=== PATIENT | male | born 1990 | race Caucasian/White ===

== ENCOUNTER 2023-05-20 12:27 | Observation (INO) | payer OTHER, SELFPAY ==
[2023-05-20] VITALS (46 sets, daily range): BP systolic 119–170; BP diastolic 82–120; PULSE 110–158; RESP 12–27; TEMP 36.3–36.6; O2SAT 91–100; BMI 30.5
--- NOTE | ~2023-05-20 | XR_ITS ---
EXAMINATION: XR chest 1V portable 05/20/2023 14:48 INDICATION: Tachycardia PROCEDURE: AP portable chest COMPARISON: No prior studies for comparison. FINDINGS: The lungs are clear. The cardiomediastinal silhouette is within normal limits. There are no pleural effusions. There is no pneumothorax suspected. IMPRESSION: 1: NO ACUTE CARDIOPULMONARY DISEASE. Reviewed, dictated and finalized at location B.
--- NOTE | ~2023-05-20 | MR_ITS ---
EXAMINATION: MR brain/brain stem wo con DATE: 05/21/2023 10:35 INDICATION: Tremors TECHNIQUE: Magnetic resonance imaging (MRI) of the brain and brainstem was performed without intraven ous contrast. Sequences included sagittal and axial T1-weighted SE, axial diffusion-weighted FS SE, a xial T2*-weighted GRE, axial 3D SWAN, axial T2-weighted FLAIR, and axial T2-weighted FSE. Apparent di ffusion coefficient (ADC) maps were created. COMPARISON: None. FINDINGS: There are no areas of restricted diffusion to suggest acute infarction. No intracranial hemorrhage or abnormal intracranial mass lesion. There are no intraparenchymal signal abnormalities seen on the ot her pulse sequences. The ventricles are symmetric and normal in size. There are no abnormal extra-axi al fluid collections. Flow voids are seen in the cerebral arteries on the T2-weighted sequences consi stent with their expected patency. Mild mucosal thickening the paranasal sinuses with mucous retentio n cyst at the right maxillary sinus. Visualized orbits and soft tissues are unremarkable. IMPRESSION: 1. Normal brain. Reviewed, dictated and finalized at location A. IMPRESSION: 1. Normal brain.
--- NOTE | ~2023-05-20 | XR_ITS ---
EXAMINATION: XR wrist RT min 3V DATE: 05/20/2023 13:03 INDICATION: Right wrist pain TECHNIQUE: Posteroanterior, ulnar deviation, oblique, and lateral views of the right wrist were obtai danelle. COMPARISON: none FINDINGS: Positioning is suboptimal with the patient's wrist dorsiflexed in the hand clenched into a fist. No e vident malalignment. No fracture. Joint spaces are normal. No erosions or periosteal reaction. There is a peripheral IV at the dorsum of the hand. Soft tissues are otherwise unremarkable. IMPRESSION: 1. Negative right wrist radiographs. Evaluation mildly limited by patient positioning. Reviewed, dictated and finalized at location A. IMPRESSION: 1. Negative right wrist radiographs. Evaluation mildly limited by patient posit ioning.
--- NOTE | 2023-05-20 12:38 | ECG_ITS ---
Measurements Intervals [place] Rate: 160 P: 47 MA: 113 QRS: 39 QRSD: 85 T: 55 QT: 281 QTc: 460 Interpretive Statements SINUS TACHYCARDIA WITH SHORT MA INTERVAL NONSPECIFIC T-WAVE ABNORMALITY BASELINE ARTIFACT ABNORMAL RHYTHM ECG NO PREVIOUS ECG AVAILABLE FOR COMPARISON Electronically Signed On 05-20-2023 20:24:[address] M.D.
--- NOTE | 2023-05-20 12:44 | ED.GENADULT ---
HPI - General Adult General Chief complaint: Unspecified Stated complaint: muscle tightness Time Seen by Provider: 05/20/23 12:40 History of Present Illness HPI narrative: EMS called earlier for patient because he was tensing all over, felt like he was having muscle spasms, he had taken his usual Adderall, no other medications, felt really warm. Per EMS when they first arrived he looked like he was hyperventilating and clenching, asked for partner drive him to the ER instead. Denies any recent drug use. Related Data Allergies Allergy/AdvReac Type Severity Reaction Status Date / Time No Known Allergies Allergy Verified 05/20/23 12:47 Course Vital Signs Vital signs: Vital Signs Temperature 97.9 F 05/20/23 12:34 Respiratory Rate 24 H 05/20/23 12:34 Blood Pressure 170/120 H 05/20/23 12:34 Pulse Oximetry 98 05/20/23 12:34 Temperature 97.9 F 05/20/23 12:34 Pulse Rate 122 H 05/20/23 17:01 Respiratory Rate 20 05/20/23 17:01 Blood Pressure 156/109 H 05/20/23 17:01 Pulse Oximetry 97 05/20/23 17:01 Medical Decision Making [facility] Narrative Medical decision making narrative: Patient presenting with tachycardia, he is diaphoretic and extremely tense with muscle rigidity, he is adamantly denying any drug use and not on any antipsychotics and only takes Adderall which his girlfriend dispenses to him. My differential includes ingestion/intoxication, anxiety, dehydration. He is given IV fluids and Ativan. D-dimer negative, lactic elevated, creatinine elevated. ETOH 92. His heart rate has improved, I did reevaluate him and he states that everything seems to hurt, he is quite tremulous and I do suspect more likely alcohol withdrawal. He is given additional doses of benzos and he is agreeable to admission. Discussed with hospitalist for admission. Vital Signs Vital Signs: Vital Signs Temperature 97.9 F 05/20/23 12:34 Respiratory Rate 24 H 05/20/23 12:34 Blood Pressure 170/120 H 05/20/23 12:34 Pulse Oximetry 98 05/20/23 12:34 Temperature 97.9 F 05/20/23 12:34 Pulse Rate 122 H 05/20/23 17:01 Respiratory Rate 20 05/20/23 17:01 Blood Pressure 156/109 H 05/20/23 17:01 Pulse Oximetry 97 05/20/23 17:01 Lab Data 05/20/23 13:08 05/20/23 13:08 Labs: Lab Results 05/20/23 05/20/23 05/20/23 Range/Units 13:08 13:08 15:57 WBC 8.7 (4.5-10.0) K/mm3 RBC 5.77 (4.6-6.20) M/mm3 Hgb 16.8 (14.0-18.0) g/dL Hct 51.6 (42.0-52.0) % MCV 89.4 (80-100) fl MCH 29.1 (26-34) pg MCHC 32.6 (32-36) g/dl RDW 16.3 H (11.5-14.5) % Plt Count 250 (150-375) k/mm3 MPV 10.7 H (7.4-10.4) fl Immature Gran % (Auto) 0.3 (0-0.5) % Neut % (Auto) 71.8 (45.5-73.1) % Lymph % (Auto) 18.1 L (18.3-44.2) % [place] % (Auto) 7.5 (2.6-8.5) % Eos % (Auto) 1.7 (0-4.4) % Baso % (Auto) 0.6 (0.2-1.2) % Lymph # (Auto) 1.57 (0.9-3.2) K/mm3 [place] # (Auto) 0.7 H (0.1-0.6) K/mm3 Eos # (Auto) 0.2 (0-0.3) K/mm3 Baso # (Auto) 0.1 (0.0-0.1) K/mm3 Abs Immat Gran (auto) 0.03 (0.00-0.031) K/mm3 Absolute Neuts (auto) 6.2 (1.3-6.7) K/mm3 Absolute Nucleated RBC 0.0 (0.0-0.012) K/mm3 Nucleated RBC % 0.0 (0.0-0.2) % D-Dimer 0.37 (<0.48) ug/mL Sodium 144 (137-145) mmol/L Potassium 4.7 (3.4-5.0) mmol/L Chloride 106 (98-107) mmol/L Carbon Dioxide 14 L (22-30) mmol/L Anion Gap 24 H (8-16) mmol/L BUN 9 (9-20) mg/dL Creatinine 1.40 H (0.7-1.3) mg/dL Estim Creat Clear Calc 70 ml/min Estimated GFR 58 L (59 - ) Glucose 121 H (65-110) mg/dL Lactic Acid 8.3 H* 3.4 H (0.7-2.0) mmol/L Calcium 9.8 (8.4-10.2) mg/dL Total Creatine Kinase 541 H (55-170) U/L Troponin I < 0.012 Cancelled (0.000-0.034) ng/mL TSH (Reflex) 1.180 (0.465-4.68) uIU/mL Urine Color (Yellow) Urine Appearance (Clear) Urine pH (5.0-9.0)
[2023-05-20] MEDS: LACTATED RINGERS 1,000 ML 999 ML IV CONT ×3 (12:48→15:01)
[2023-05-20] MEDS: LORazepam INJ (*CRX) 2 MG/ML VIAL 1 MG IV PUSH (12:48)
[2023-05-20 13:19] LABS: Basophils Absolute Auto 0.1 K/mm3 (0.0-0.1); Basophils Percent Auto 0.6 % (0.2-1.2); Eosinophils Absolute Auto 0.2 K/mm3 (0-0.3); Eosinophils Percent Auto 1.7 % (0-4.4); Hematocrit 51.6 % (42.0-52.0); Hemoglobin 16.8 g/dL (14.0-18.0); Immature Granulocyte Absolute 0.03 K/mm3 (0.00-0.031); Immature Granulocyte Percent A 0.3 % (0-0.5); Lymphocytes Absolute Auto 1.57 K/mm3 (0.9-3.2); Lymphocytes Percent Auto 18.1 % (18.3-44.2); Mean Corpuscular HGB Conc 32.6 g/dl (32-36); Mean Corpuscular Hemoglobin 29.1 pg (26-34); Mean Corpuscular Volume 89.4 fl (80-100); Mean Platelet Volume 10.7 fl (7.4-10.4); Monocytes Absolute Auto 0.7 K/mm3 (0.1-0.6); Monocytes Percent Auto 7.5 % (2.6-8.5); Neutrophils Absolute Auto 6.2 K/mm3 (1.3-6.7); Neutrophils Percent Auto 71.8 % (45.5-73.1); Platelet Count Result 250 k/mm3 (150-375); Red Blood Count 5.77 M/mm3 (4.6-6.20); Red Cell Distribution Width 16.3 % (11.5-14.5); White Blood Count 8.7 K/mm3 (4.5-10.0)
[2023-05-20 13:28] LABS: Anion Gap 24 mmol/L (8-16); Blood Urea Nitrogen 9 mg/dL (9-20); Calcium 9.8 mg/dL (8.4-10.2); Carbon Dioxide 14 mmol/L (22-30); Chloride 106 mmol/L (98-107); Estimated CRCL calculation 70 ml/min; Estimated Glomerular Filt Rate 58; Glucose 121 mg/dL (65-110); Potassium 4.7 mmol/L (3.4-5.0); Sodium 144 mmol/L (137-145)
[2023-05-20 13:31] LABS: Lactic Acid Reflex 8.3 mmol/L (0.7-2.0)
[2023-05-20 13:35] LABS: D Dimer 0.37 ug/mL (<0.48)
[2023-05-20 13:40] LABS: Troponin I < 0.012 ng/mL (0.000-0.034)
[2023-05-20 16:09] LABS: Appearance Urine Clear (Clear); Bilirubin Urine Negative (Negative); Blood Urine Negative (Negative); Color Urine Yellow (Yellow); Glucose Urine UA Negative (Negative); Ketones Urine 1+ mg/dL (Negative); Leukocyte Esterase Ur Negative LEU/UL (Negative); Nitrate Urine Negative (Negative); Protein Urine Negative (Negative); Urobilinogen Urine 0.2 mg/dL (<2.0)
[2023-05-20 16:16] LABS: Reflex Lactic Acid Yes or No Add Lactic
[2023-05-20 16:17] LABS: Add Urine Microscopic? NO
[2023-05-20] MEDS: MIDAZOLAM HCL (*CRX) 2 MG/2 ML VIAL IV PUSH (16:26)
[2023-05-20 16:28] LABS: Lactic Acid Reflex 3.4 mmol/L (0.7-2.0)
[2023-05-20 16:44] LABS: Creatine Kinase 541 U/L (55-170)
[2023-05-20 16:46] LABS: Ethanol 92 mg/dL (<10)
[2023-05-20 16:57] LABS: Amphetamine Screen Urine Negative (Negative); Barbiturate Screen Urine Negative (Negative); Benzodiazepines Screen Urine Positive (Negative); Cannabinoid Screen Urine Negative (Negative); Cocaine Screen Urine Negative (Negative); Methadone Screen Urine Negative (Negative); Opiate Screen Urine Negative (Negative); Phencyclidine Screen Urine Negative (Negative)
[2023-05-20 19:22] LABS: Lactic Acid 1.1 mmol/L (0.7-2.0)
--- NOTE | 2023-05-20 22:04 | ADMGEN ---
This patient, Torsten Maria, was admitted to IMU Room 206-01 at 2030. Patient/family oriented to hospital policies and general routines including ID bracelet, bed and alarms, visiting hours, pain management, procedures, bathroom and other care routines, personal items, smoking policy, room service/diet, and visiting hours. Information on how to activate the Rapid Response Team has been discussed. Patient/Family are encouraged to report perceived risks to care and to ask questions if they do not understand what they are told or what they should do.
[2023-05-21] VITALS (15 sets, daily range): BP systolic 131–159; BP diastolic 85–105; PULSE 82–127; RESP 16–22; TEMP 36.1–36.6; O2SAT 96–100
--- NOTE | 2023-05-21 | ECHO_ITS ---
Patient Info Name: Torsten Maria Age: 33 years : 1990 Gender: Male Ht: 71 in Wt: 218 lbs BSA: 2.25 m2 HR: 101 bpm BP: 131 / 98 mmHg Heart Rhythm: Tachycardia Technical Quality: Fair Exam Date: 05/21/2023 9:43 AM Exam Location: [facility] Patient Status: Outpatient Admit Date: 05/20/2023 Staff Ordering Physician: Jessica Scott MD Legal Assistant: Harini Byrne RDCS Attending Provider: Gwen White MD Referring Physician: Sonia CURTIS; Exam Type: CA echo doppler color flow Study Info Indications R00.0 - Tachycardia, unspecified Complete two-dimensional, color flow and Doppler transthoracic echocardiogram is performed. Summary 1. Complete two-dimensional, color flow and Doppler transthoracic echocardiogram is performed. 2. Normal left ventricular size and thickness. Left ventricular function mildly diminished. Ejection fraction visually is 45-50%, measured 44%. Normal diastolic function. 3. No significant valve disease. 4. Normal estimated pulmonary pressure. 5. Sinus rhythm heart rate 95-103 beats per minute. Left Ventricle Left ventricular chamber dimension is normal. Left ventricular systolic function is mildly reduced, estimated at 45-50%. There is no increased left ventricular wall thickness. Left ventricular septal wall motion is normal. The left ventricular diastolic function is normal. Right Ventricle Right ventricular chamber dimension is normal. Right ventricular systolic function is normal. Left Atria Left atrial chamber dimension is normal. Right Atria Right atrial chamber dimension is normal. Aortic Valve The aortic valve is trileaflet. There is no aortic valve sclerosis. There is no aortic valve stenosis. There is no aortic valve regurgitation. Pulmonic Valve The pulmonic valve is normal. There is no pulmonic valve stenosis. There is no pulmonic regurgitation. Mitral Valve The mitral valve has normal leaflets. There is no mitral valve stenosis. There is no mitral valve regurgitation. Tricuspid Valve The tricuspid valve leaflets are normal. There is no significant tricuspid valve stenosis. There is trace tricuspid valve regurgitation. No pulmonary hypertension, estimated pulmonary arterial systolic pressure is 28 mmHg. Pericardium/Pleural The pericardium appears normal. There is no pericardial effusion. Inferior Vena Cava Normal inferior vena cava with >50% collapse upon inspiration consistent with Empty right atrial pressure, 10 mmHg. Aorta The aortic root size at the sinus of Valsalva is normal. The prox ascending aorta size is normal. Left Ventricular Outflow Tract Name Value Normal LVOT 2D LVOT Diameter 2.1 cm LVOT Doppler LVOT Peak Gradient 4 mmHg LVOT Mean Gradient 2 mmHg LVOT VTI 16 cm LVOT VTI/AV VTI Ratio 0.9 LVOT Stroke Volume 56 ml LVOT CO 5.2 l/min LVOT CI 2.3 l/min/m2 Pulmonic Valve Name
--- NOTE | 2023-05-21 01:29 | PM.IMHP ---
H&P: HPI History of Present Illness Date/Time: 05/21/23 01:29 Chief Complaint: tremors Narrative: This is a 33 yo male with PMHx significant for ADHD, ETOH dependence patient presents to ED due to tremors, visual hallucinations,unsteady gait, panic attacks.Patient drinks 2 alcoholic drinks nightly. Denies loss of vision, no focal sensory motor deficit, no headache, no n/v/abdominal pain, no fevers, rigors or chills. Preliminary work up was significant for a lactic acid of 3, Cr 1.4, CK 540 Alcohol level of 92. Patient is been admitted for further evaluation, management and treatment. EXAMINATION: XR wrist RT min 3V DATE: 05/20/2023 13:03 INDICATION: Right wrist pain TECHNIQUE: Posteroanterior, ulnar deviation, oblique, and lateral views of the right wrist were obtained. COMPARISON: none FINDINGS: Positioning is suboptimal with the patient's wrist dorsiflexed in the hand clenched into a fist. No evident malalignment. No fracture. Joint spaces are normal. No erosions or periosteal reaction. There is a peripheral IV at the dorsum of the hand. Soft tissues are otherwise unremarkable. IMPRESSION: 1. Negative right wrist radiographs. Evaluation mildly limited by patient positioning. EXAMINATION: XR chest 1V portable 05/20/2023 14:48 INDICATION: Tachycardia PROCEDURE:? AP portable chest COMPARISON: No prior studies for comparison. FINDINGS: The lungs are clear.? The cardiomediastinal silhouette is within normal limits.? There are no pleural effusions.? There is no pneumothorax suspected.? IMPRESSION: 1:? NO ACUTE CARDIOPULMONARY DISEASE. ekg Rate 160 AR 113 QRSd 85 QT 281 QTc 460 --[place]-- P 47 QRS 39 T 55 SINUS TACHYCARDIA WITH SHORT AR INTERVAL NONSPECIFIC T-WAVE ABNORMALITY BASELINE ARTIFACT ABNORMAL RHYTHM ECG NO PREVIOUS ECG AVAILABLE FOR COMPARISON Electronically Signed On 05-20-2023 20:24:[address] M.D. Review of Systems Review of Systems: visual hallucinations, tremors. Constitutional: Constitutional: Denies chills, Denies fatigue, Denies fever(s), Denies malaise, Reports poor appetite and Denies weakness Eyes: Eyes: Denies change in vision ENT: Denies dysphagia, Denies vertigo, Denies dizziness and Denies odynophagia Cardiovascular: Cardiovascular: Denies chest pain, Denies leg edema, Denies radiating jaw, neck or arm pain and Denies palpitations Respiratory: Respiratory: Denies chest congestion and Denies excessive phlegm production Gastrointestinal: Gastrointestinal: Denies abdominal pain, Denies dyspepsia, Denies heartburn, Denies diarrhea, Denies nausea and Denies vomiting Genitourinary: Genitourinary: Denies dysuria Musculoskeletal: Musculoskeletal: Denies muscle weakness Integumentary/Breasts: Skin/Breast: Denies rash Neurologic: Denies vertigo, Denies dizziness, Denies focal weakness, Denies Sensory deficit (Neuro), Reports tremor(s) and Reports disequilibrium Psychiatric: Psychiatric: Reports mood swings and Reports panic attacks Endocrine: Endocrine: Denies cold intolerance, Denies fatigue, Denies flushing, Denies heat intolerance, Denies polyphagia, Denies polydipsia and Denies palpitations Hematologic/Lymphatic: Hematologic/Lymphatic: Reports no additional hematologic/lymphatic complaints and Reports as per HPI Allergic/Immunologic: Allergic/Immunologic: Reports no additional allergic/immunologic complaints and Reports as per HPI PMFSH Social History Social History Alcohol intake: current Drinks per week: 14 Substance use: never Lack of Transportation: No Lack of Food: Never True Current Housing: I Have Housing Concerned About Future Housing: No Difficulty Paying Gas/Electric Bills: No Difficulty Paying for Meds: No Currently Unemployed: No Education: Master's Degree or Higher Difficulty w/ Childcare or Family Care: No Spiritual care concerns: No Meds Home Medications and Allergies Home Medications Medication Ins
[2023-05-21 04:29] LABS: Basophils Percent Auto 0.6 % (0.2-1.2); Eosinophils Absolute Auto 0.2 K/mm3 (0-0.3); Eosinophils Percent Auto 3.8 % (0-4.4); Hematocrit 43.4 % (42.0-52.0); Hemoglobin 13.6 g/dL (14.0-18.0); Immature Granulocyte Absolute 0.02 K/mm3 (0.00-0.031); Immature Granulocyte Percent A 0.3 % (0-0.5); Lymphocytes Absolute Auto 1.73 K/mm3 (0.9-3.2); Lymphocytes Percent Auto 27.6 % (18.3-44.2); Mean Corpuscular HGB Conc 31.3 g/dl (32-36); Mean Corpuscular Hemoglobin 28.8 pg (26-34); Mean Corpuscular Volume 91.9 fl (80-100); Mean Platelet Volume 10.9 fl (7.4-10.4); Monocytes Absolute Auto 0.5 K/mm3 (0.1-0.6); Monocytes Percent Auto 8.1 % (2.6-8.5); Neutrophils Absolute Auto 3.7 K/mm3 (1.3-6.7); Neutrophils Percent Auto 59.6 % (45.5-73.1); Platelet Count Result 169 k/mm3 (150-375); Red Blood Count 4.72 M/mm3 (4.6-6.20); Red Cell Distribution Width 15.3 % (11.5-14.5); White Blood Count 6.3 K/mm3 (4.5-10.0)
[2023-05-21 04:44] LABS: Anion Gap 8 mmol/L (8-16); Blood Urea Nitrogen 11 mg/dL (9-20); Calcium 9.1 mg/dL (8.4-10.2); Carbon Dioxide 27 mmol/L (22-30); Chloride 102 mmol/L (98-107); Estimated CRCL calculation 121 ml/min; Estimated Glomerular Filt Rate > 60; Glucose 85 mg/dL (65-110); Potassium 4.1 mmol/L (3.4-5.0); Sodium 137 mmol/L (137-145)
[2023-05-21] MEDS: chlordiazePOXIDE (*CRX) 25 MG CAPSULE 50 MG PO ×3 (05:36→17:52)
[2023-05-21] MEDS: amLODIPine BESYLATE 5 MG TABLET PO (09:23)
[2023-05-21] MEDS: ENOXAPARIN 40 MG/0.4 ML SYRINGE SUB-Q (09:23)
--- NOTE | 2023-05-21 10:08 | WPDNEURCNPN ---
Assessment and Plan Assessment and plan (1) Behavioral change: Code(s): R46.89 - Other symptoms and signs involving appearance and behavior Status: Acute (2) Tremor: Code(s): R25.1 - Tremor, unspecified Status: Acute (3) Alcohol dependence: Code(s): F10.20 - Alcohol dependence, uncomplicated Status: Acute (4) Rhabdomyolysis: Code(s): M62.82 - Rhabdomyolysis Status: Acute Plan Mr. Maria is a 33 year old male with a history of chronic alcohol use presenting for evaluation of change in behavior, tremulousness, and memory loss in the setting of what appears to be alcohol intoxication. Also seems to be psych component of mood lability, fugue states . He has action tremor in the RUE that is likely physiologic, but there also appears to be some embellishment during exam. Patient reports that he has episodes where he has no recollection of what happened during, and this can also occur while he drives. Focal seizures also on the differential. I discussed that it is unclear what these episodes are, but he should not be driving until he is cleared by a provider. MRI brain is normal. - Routine EEG pending - Check B1, B12, folate levels - Outpatient psych - Discussed alcohol abstinence Consult date: 05/21/23 Reason for consult: Tremor HPI: Torsten Maria is a 33 year old male with a history of ADHD, alcohol dependence presenting due to stiffness, tremors. Patient called EMS earlier yesterday because he felt that he was tensing all over and having muscle spasms. When EMS arrived, patient appeared to be hyperventilating and clenching. In ED, patient was tachycardic, diaphoretic, and appeared to have muscle rigidity. He takes Adderall but denied any other medications or drug use. His UDS was positive for benzos but he did receive Ativan in the ED. His alcohol level was 92. CK level was 540. He was admitted for IV hydration and further evaluation of his symptoms. TSH level from this admission was normal. He is currently receiving scheduled Librium. MRI brain today is normal. Patient reports for the past few months he has been having labile mood changes, anger outburst, and fugue states . He reports that he will have no memory of certain times of the day, which can even occur while he is driving. The day prior to admission, his girlfriend noted that he was playing video games, when he became very angry and eventually punched a wall. Patient has no recollection of this. He woke up at 3AM the following morning face down on the porch. He denies any alcohol use during this. He reports he drinks about two cocktails everyday, which he says is a significant reduction compared to how much he was drinking during the pandemic. 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 He denies any prior history of seizures. He works as an [employer]. Review of Systems Eyes: Eyes: Reports blurry vision ENT: Reports system reviewed and no additional complaints, except as documented Cardiovascular: Cardiovascular: Reports chest pain and Reports diaphoresis Respiratory: Respiratory: Reports no additional respiratory complaints Gastrointestinal: Gastrointestinal: Reports no additional gastrointestinal complaints Genitourinary: Genitourinary: Reports no additional male genitourinary complaints Musculoskeletal: Musculoskeletal: Reports myalgias and Reports stiffness Integumentary/Breasts: Skin/Breast: Reports system reviewed and no additional complaints, except as docu Neurologic: Reports as per HPI and Reports confusion Psychiatric: Psychiatric: Reports anxiety, Reports behavioral changes and Reports confusion PMFSH Social History Social History Alcohol intake: current Drinks per week: 14 Substance use: never Lack of Tr
--- NOTE | 2023-05-21 12:19 | PM.IMPN ---
Progress Note: A&P Assessment and Plan (1) Alcohol withdrawal: Code(s): F10.939 - Alcohol use, unspecified with withdrawal, unspecified Status: Acute Assessment and Plan: Patient presents with muscle spasms and tremor. Concern for alcohol withdrawal. He was given IV fluids with vitamins. Brain MRI was normal. TSH was normal. Chest x-ray was clear. He did have a lactic acidosis. Consider seizures. Consider dystonic reaction related to on no medications. Patient denies taking any other medications than was prescribed. Neurology consulted. EEG has been performed. Vitamin levels have been ordered. Will continue thiamine and folate with multivitamin orally. Will start PT and OT. CIWA still 6-8. Continue Librium for now. (2) Tremor: Code(s): R25.1 - Tremor, unspecified Status: Acute Assessment and Plan: As above. (3) Acute lactic acidosis: Code(s): E87.21 - Acute metabolic acidosis Status: Acute Assessment and Plan: Lactic acidosis noted with lactic acid of 8.3. This could correspond with seizures. With IV fluids, lactic acid has normalized. Renal function has normalized as well. Continue to follow. (4) Sinus tachycardia: Code(s): R00.0 - Tachycardia, unspecified Status: Acute Assessment and Plan: EKG shows sinus tachycardia with short WA interval. EKG reviewed personally. Echocardiogram has been ordered. Heart rate better controlled. Still mildly tachycardic. Will fall for now but consider adding beta-nell. (5) Rhabdomyolysis: Code(s): M62.82 - Rhabdomyolysis Status: Acute Assessment and Plan: Mild rhabdomyolysis related to above. Total CK was 540. UA showed no blood. Renal function was abnormal but has normalized with fluids. He may have been dehydrated on admission. Repeat total CK. (6) Alcohol dependence: Code(s): F10.20 - Alcohol dependence, uncomplicated Status: Acute Assessment and Plan: Patient was educated about the benefits of the abstaining from alcohol use. (7) Tobacco abuse: Code(s): Z72.0 - Tobacco use Status: Acute Assessment and Plan: Patient was educated about benefits of abstaining from tobacco use. Plan DVT prophylaxis -Lovenox Code status -full Subjective Date/time seen: 05/21/23 12:19 Interval history: 33yo male with ADHD, tobacco abuse here for muscle spasms. He is still having tremors. Symptoms better. No CP or SOB. he is up walking to the BR. He smokes. He drinks 2 'nightcaps' per night. Exam Narrative: AF 97.2 152/102 106 18 98% ra Gen - NARD Chest - CTA bilaterally, nml RR CV - RRR S1/S2. Telemetry showing sinus tachycardia at times Abd - Soft, NT/ND, Positive BS Ext - No pedal edema. Neuro - Alert and oriented. Nonfocal exam except mild tremor known right upper extremity. Psych - Nml mood and affect Skin -mildly diaphoretic. Objective Data Vital Signs Vital Signs: Vital Signs - 24 hr 05/20/23 12:34 05/20/23 12:50 05/20/23 13:33 Temperature 97.9 F Pulse Rate 158 H 140 H Respiratory Rate 24 H 17 Blood Pressure 170/120 H Pulse Oximetry 98 95 Oxygen Delivery 05/20/23 13:35 05/20/23 13:45 05/20/23 13:46 Temperature Pulse Rate 138 H 132 H 133 H Respiratory Rate 13 27 H 17 Blood Pressure 123/82 119/88 Pulse Oximetry 97 94 96 Oxygen Delivery 05/20/23 14:00 05/20/23 14:01 05/20/23 14:16 Temperature Pulse Rate 128 H 127 H 125 H Respiratory Rate 22 H 24 H 19 Blood Pressure 133/93 H 126/90 Pulse Oximetry 93 94 92 Oxygen Delivery 05/20/23 14:17 05/20/23 14:31 05/20/23 14:32 Temperature Pulse Rate 124 H 125 H 125 H Respiratory Rate 19 18 19 Blood Pressure 129/85 Pulse Oximetry 91 94 95 Oxygen Delivery 05/20/23 14:45 05/20/23 14:46 05/20/23 15:00 Temperature Pulse Rate 125 H 126 H 134 H Respiratory Rate 15 19 20 Blood Pressure
[2023-05-21] MEDS: THIAMINE HCL 100 MG TABLET PO (13:10)
[2023-05-21 13:13] LABS: Glucose Point of Care 116 mg/dl (65-105)
[2023-05-21 13:19] LABS: Creatine Kinase 641 U/L (55-170)
[2023-05-21 17:40] LABS: Glucose Point of Care 112 mg/dl (65-105)
[2023-05-21] MEDS: METOPROLOL TARTRATE 25 MG TABLET PO (18:37)
[2023-05-21 20:53] LABS: Anion Gap 5 mmol/L (8-16); Blood Urea Nitrogen 12 mg/dL (9-20); Calcium 9.1 mg/dL (8.4-10.2); Carbon Dioxide 31 mmol/L (22-30); Chloride 101 mmol/L (98-107); Creatine Kinase 613 U/L (55-170); Estimated CRCL calculation 121 ml/min; Estimated Glomerular Filt Rate > 60; Glucose 99 mg/dL (65-110); Potassium 3.7 mmol/L (3.4-5.0); Sodium 137 mmol/L (137-145)
[2023-05-21 23:34] LABS: Glucose Point of Care 89 mg/dl (65-105)
[2023-05-22] VITALS (11 sets, daily range): BP systolic 130–152; BP diastolic 82–103; PULSE 81–197; RESP 18–20; TEMP 36.1–36.9; O2SAT 97–100
[2023-05-22] MEDS: chlordiazePOXIDE (*CRX) 25 MG CAPSULE 50 MG PO ×3 (00:30→13:26)
[2023-05-22 06:21] LABS: HIV 1/2 Ab P24 Ag Result Negative (Negative)
[2023-05-22] MEDS: amLODIPine BESYLATE 5 MG TABLET PO (09:47)
[2023-05-22] MEDS: MULTIVITAMINS THERAPEUTIC TAB (*BKC) 1 TABLET PO (09:47)
[2023-05-22] MEDS: METOPROLOL TARTRATE 25 MG TABLET PO (09:47)
[2023-05-22] MEDS: THIAMINE HCL 100 MG TABLET PO (09:47)
[2023-05-22] MEDS: ENOXAPARIN 40 MG/0.4 ML SYRINGE SUB-Q (09:48)
[2023-05-22] MEDS: FOLIC ACID 1 MG TABLET PO (09:48)
--- NOTE | 2023-05-22 09:57 | WPDNEUROLOGY ---
Neurology EEG Report General Information Date of Study: 05/21/23 TEST Routine EEG DIAGNOSIS Episode of memory loss, muscle spasms, tremor CONDITION OF RECORDING Awake, drowsy EEG NUMBER [id number] CLINICAL HISTORY Patient for episode of muscle spasms, tremulousness, and memory loss. He reports the was playing video games, when he suddenly had an anger outburst, punched a wall. Patient has no recollection of this. When he woke up he was laying outside on the porch, face down. EEG DESCRIPTION During the awake state with eyes closed the background consists of 9-10 Hz posterior dominant rhythm which attenuates appropriately with eye opening. The recording is continuous. There is a well developed anterior-posterior gradient. No significant asymmetries of background activities are noted. With drowsiness there is waxing and waning of the dominant rhythm with eventual replacement by a mixture of beta, alpha, and theta activity. Patient does not enter stage II sleep. There are no epileptiform discharges or seizures during this recording. Hyperventilation and photic stimulation were not performed. IMPRESSION This is a normal routine EEG recorded in awake and drowsy states. There are no electrographic seizures identified, nor are there any epileptiform discharges. Please note that a normal EEG cannot exclude a seizure disorder. Clinical correlation is recommended.
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
[2023-05-22 12:16] LABS: Glucose Point of Care 121 mg/dl (65-105)
--- NOTE | 2023-05-22 15:26 | PM.DS ---
DS: Admitting Diagnosis Discharge Date 05/22/23 Admitting Diagnosis muscle tightness DS: Discharge Diagnosis Discharge Diagnosis (1) Alcohol withdrawal: Code(s): F10.939 - Alcohol use, unspecified with withdrawal, unspecified Status: Acute (2) Tremor: Code(s): R25.1 - Tremor, unspecified Status: Acute (3) Acute lactic acidosis: Code(s): E87.21 - Acute metabolic acidosis Status: Acute (4) Sinus tachycardia: Code(s): R00.0 - Tachycardia, unspecified Status: Acute (5) Rhabdomyolysis: Code(s): M62.82 - Rhabdomyolysis Status: Acute (6) Alcohol dependence: Code(s): F10.20 - Alcohol dependence, uncomplicated Status: Acute (7) Tobacco abuse: Code(s): Z72.0 - Tobacco use Status: Acute DS: Summary Hospital Course Reason for hospitalization: 33yo male with ADHD, alcohol abuse and tobacco abuse here for muscle spasms. Please see H&P for details. Hospital Course: Patient presents with muscle spasms and tremor.? Concern for alcohol withdrawal.? He was given IV fluids with vitamins.? Brain MRI was normal.? TSH was normal.? Chest x-ray was clear.? He did have a lactic acidosis to 8.3 but trended down to normal within 5 hours. Consider seizures but EEG was normal and Neurology felt seizures unlikely. Consider dystonic reaction.? Patient denies taking any other medications than was prescribed.? Neurology consulted.? HIV negative. UDS positive for benzodiazepines (after receiving Ativan in ED). Alcohol level 92. Total CK climbed to 641 before trending down. UA showed no blood.? B12 level normal. He had mild ALINA with Cr 1.4 but normal with IV fluids. Other vitamin levels pending. He was treated with thiamine, folate and multivitamin. Started on scheduled librium. PT and OT ordered. CIWA down to 4 and stable. He was educated about the benefits of abstaining from alcohol and tobacco. Heart rate elevated on admission to 150's. EKG shows sinus tachycardia with short KS interval.? EKG reviewed personally.? Echocardiogram showing EF 45-50% but no wall motion abnormalities, no valvular disease and normal diastolic function. BP on admission also elevated to 170/120. Suspect decreased EF related to HTN and/or tachycardia and/or from alcohol. Metoprolol added and heart rate better controlled.? Will change his Norvasc to Losartan at discharge. He overall did well and was able to be discharged on 05/22/23. coordinator of library services provide information about counseling and psychiatrist. He decline resources regarding his alcoholism. Status at Discharge Cognitive/behavioral status at discharge: stable Time Spent with Patient Time attestation: Total time spent providing and/or coordinating discharge services: 35 minutes Time spent: Greater than 30 minutes Exam Narrative: AF 96.9 147/97 97 20 97% ra Gen - NARD Chest - CTA bilaterally, nml RR CV - RRR S1/S2. Telemetry showing occasional sinus tachycardia Abd - Soft, NT/ND, Positive BS Ext - No pedal edema. Neuro - Alert and appropriate. calm and cooperative. Psych - Nml mood and affect Skin -warm and dry, skin tachy DS: Data Data Completed and Pending Labs on day of discharge: Labs from last 24 hours 05/22/23 05/22/23 05/21/23 11:50 04:28 23:23 Sodium Potassium Chloride Carbon Dioxide Anion Gap BUN Creatinine Estim Creat Clear Calc Estimated GFR Glucose POC Capillary Glucose 121 H 89 Calcium Total Creatine Kinase HIV 1&2 Ab/P24 Ag 4thGn Negative 05/21/23 05/21/23 19:46 17:36 Sodium 137 Potassium 3.7 Chloride 101 Carbon Dioxide 31 H Anion Gap 5 L BUN 12 Creatinine 0.90 Estim Creat Clear Calc 121 Estimated GFR > 60 Glucose 99 POC Capillary Glucose 112 H Calcium 9.1 Total Creatine Kinase 613 H HIV 1&2 Ab/P24 Ag 4thGn Discharge Plan Discharge Attending physician on discharge: Alexander Webster
--- NOTE | 2023-05-22 16:00 | PC.NURSE ---
Discussed with patient the options of [facility] and [facility] across the street. Told patient that the care coordinators are the best option for giving him resources in the area that he may need. Patient was receptive to the information.
[2023-05-24 05:41] LABS: Red Blood Cell Folate 548 ng/mL RBC (>280)
--- NOTE | 2023-05-26 09:49 | PC.NURSE ---
Folate WNL at 548. Dr. Webster aware.
== END 2023-05-22 17:02 | disposition home or self-care (01) ==
LOC: ANHED 17:38 → ANHIMU 05-21 02:00
PROVIDERS: General Practice; Student in an Organized Health Care Education/Training Program; Admitting Provider Internal Medicine; Emergency Provider Emergency Medicine; Visit Provider Internal Medicine
DX: F10.239 Alcohol dependence with withdrawal, unspecified (principal); R25.1 Tremor, unspecified; M62.82 Rhabdomyolysis; Z11.4 Encounter for screening for human immunodeficiency virus [HIV]; E87.21 Acute metabolic acidosis; R00.0 Tachycardia, unspecified; Y90.4 Blood alcohol level of 80-99 mg/100 ml; F90.9 Attention-deficit hyperactivity disorder, unspecified type; I45.6 Pre-excitation syndrome; M25.531 Pain in right wrist
CPT/HCPCS: 36415; 70551; 71045; 73110; 80048; 80307; 81003; 82550; 82607; 82747; 82948; 83605; 84425; 84443; 84484; 85025; 85380; 86703; 93005; 93306; 95816; 96361; 96365; 96366; 96372; 96374; 99285; A9270; G0378; G0432; J1650; J2060; J2250; J3411; J3475; J7030; J7120

== ENCOUNTER 2025-06-24 23:35 | Emergency (ER) | payer OTHER, SELFPAY ==
[2025-06-24 23:42] VITALS: BP 152/117; PULSE 80; RESP 14; TEMP 36.2; O2SAT 97
--- NOTE | 2025-06-25 00:15 | ED.WOUNDLAC ---
HPI - Wound/Laceration General Chief Complaint: Wound/Laceration Stated Complaint: Laceration Time Seen by Provider: 06/24/25 23:40 History of Present Illness HPI narrative: Patient was just lying in bed when he felt something on his neck, touched it and noticed that there was blood. Related Data Home Medications ?Medication ?Instructions ?Recorded ?Confirmed ?Last Taken ?Type dextroamphetamine-amphetamine 10 10 mg PO PRN 05/20/23 05/20/23 Unknown History mg tablet dextroamphetamine-amphetamine ER 30 mg PO DAILY 05/20/23 05/20/23 Unknown History 30 mg 24hr capsule,extend release (Adderall XR) Allergies Allergy/AdvReac Type Severity Reaction Status Date / Time No Known Allergies Allergy Verified 06/24/25 23:35 Review of Systems Review of Systems: All systems reviewed & are unremarkable except as noted in HPI and below PMFSH Social History Social History Alcohol intake: current Drinks per week: 14 Substance use: never Lack of Transportation: No Lack of Food: Never True Current Housing: I Have Housing Concerned About Future Housing: No Difficulty Paying Gas/Electric Bills: No Difficulty Paying for Meds: No Currently Unemployed: No Education: Master's Degree or Higher Difficulty w/ Childcare or Family Care: No Spiritual care concerns: No Exam Narrative: EXAMINATION OF ORGAN SYSTEMS/BODY AREAS: Constitutional: Vital signs per nursing GENERAL:[No acute distress, non-toxic appearing.] HEAD: Normal with no signs of head trauma. EYES: EOMI, conjunctiva normal ENT: Hearing grossly intact LUNGS: Nonlabored breathing. HEART: [Regular rate and rhythm] ABD: [Soft], [nontender to palpation] EXT: Normal range of motion SKIN: Very superficial flap laceration left neck NEURO: [Alert and oriented x 3. No gross focal sensory or strength deficits.] PSYCH: Normal affect Course Vital Signs Vital signs: Vital Signs Temperature 97.1 F L 06/24/25 23:42 Pulse Rate 80 06/24/25 23:42 Respiratory Rate 14 06/24/25 23:42 Blood Pressure 152/117 H 06/24/25 23:42 Pulse Oximetry 97 06/24/25 23:42 Oxygen Delivery Room Air 06/24/25 23:42 Temperature 97.1 F L 06/24/25 23:42 Pulse Rate 80 06/24/25 23:42 Respiratory Rate 14 06/24/25 23:42 Blood Pressure 152/117 H 06/24/25 23:42 Pulse Oximetry 97 06/24/25 23:42 Oxygen Delivery Room Air 06/24/25 23:42 Procedures Laceration Laceration 1: Date: 06/25/25 Time: 00:16 Site: neck Side (If applicable): left Size (cm): 4 Description: flap Depth: simple, single layer Local Anesthetic: bupivacaine 0.25% Amount of anesthesia used (mL): 2 Pre-repair: wound explored, irrigated, irrigated extensively and deep structures intact ====== Skin Level ====== Skin layer closed with: vicryl Size (cm): 4-0 Number of sutures: 4 Technique: simple, interrupted ====== Subcutaneous Layer ====== ====== Muscle Layer ====== ====== Tendon Layer ====== MDM - Wound/Laceration MDM Narrative Medical decision making narrative: Patient presents here after finding a wound to his left neck. On exam he is well-appearing no distress, has a very superficial flap laceration to the left neck without any active bleeding, deep structures are all intact. Interestingly, his sweater does have a bloody paw print from 1 of his cats, the most likely culprit of his cut. Will start him on antibiotics given the the likely dirty cat paws, laceration is loosely approximated and Steri-Strips applied. Strict Return precautions provided, patient and partner present agreeable to plan Discharge Plan Discharge Clinical Impression: Cat scratch Patient Disposition: Home Condition: Stable Instructions: Antibiotic Form Additional Instructions: Please follow up with your doctor; keep the wound clean, if you notice any redness or swelling or discharge, or anything else concerning, please return to the ER as you will need to have the stitches removed and possibly started on IV antibiotics. Patient Language: Armenian Prescriptions: New amoxicillin-pot clavulanate 875-125 mg tablet 1 tablet PO Q12H Qty: 10 0RF No Action dextroamphetamine-amphetamine [Adderall XR] 30 mg capsule,extended release 24hr 30 mg PO DAILY dextroamphetamine-amphetamine 10 mg tablet 10 mg PO PRN chlordiazepoxide HCl 25 mg Capsule 25 mg PO DIRECTED Qty: 10 0RF Rx Instructions: 25mg (1 capsule) 3x/day for 2 days (through 05/23) then decrease to 25mg (1 capsule) 2x/day for 2 days (05/24, 05/25) then decrease to 25mg (1 capsule) 1x/day at bedtime for 2 days (05/26, 05/27) then off. metoprolol tartrate 25 mg Tablet 25 mg PO Q12HR Qty: 60 1RF multivitamin with folic acid [Thera] 400 mcg Tablet 1 tablet PO QAM Qty: 30 0RF thiamine HCl (vitamin B1) [Vitamin B-1] 100 mg Tablet 100 mg PO QAM Qty: 30 0RF losartan 50 mg tablet 50 mg PO DAILY Qty: 30 0RF Follow-up/Referrals: Stef Campo MD [Primary Care Provider, Family Practice]
== END 2025-06-25 00:17 | disposition home or self-care (01) ==
PROVIDERS: Emergency Provider Emergency Medicine; PCP Emergency Medicine
DX: S11.91XA Laceration without foreign body of unspecified part of neck, initial encounter (principal); W55.03XA Scratched by cat, initial encounter
CPT/HCPCS: 12002; 99283; A9270